=== PATIENT | male | born 1985 | race Caucasian/White ===

== ENCOUNTER 2020-10-08 00:23 | Emergency (ER) | payer OTHER, SELFPAY ==
[2020-10-08 00:32] VITALS: BP 156/85; PULSE 87; RESP 18; TEMP 36.1; O2SAT 97; BMI 32.5
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
[2020-10-08] MEDS: Acetaminophen 325 MG TABLET 650 MG PO (00:57)
[2020-10-08] MEDS: Cyclobenzaprine HCl 5 MG TABLET PO (00:58)
== END 2020-10-08 01:27 | disposition home or self-care (01) ==
PROVIDERS: Emergency Provider Student in an Organized Health Care Education/Training Program; PCP Internal Medicine
DX: S13.4XXA Sprain of ligaments of cervical spine, initial encounter (principal); V43.52XA Car driver injured in collision with other type car in traffic accident, initial encounter; Y93.89 Activity, other specified; Y92.414 Local residential or business street as the place of occurrence of the external cause; Y99.0 Civilian activity done for income or pay
CPT/HCPCS: 99283; 99284

== ENCOUNTER 2020-10-09 20:20 | Emergency (ER) | payer OTHER, SELFPAY ==
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
[2020-10-09 21:45] VITALS: BP 154/91; PULSE 94; RESP 18; TEMP 37.7; O2SAT 98; BMI 33.9
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
[2020-10-09] MEDS: Cyclobenzaprine HCl 10 MG TABLET PO (23:34)
== END 2020-10-10 00:52 | disposition home or self-care (01) ==
PROVIDERS: Emergency Provider Emergency Medicine; PCP Internal Medicine
DX: Z04.2 Encounter for examination and observation following work accident (principal); R51.9 Headache, unspecified
CPT/HCPCS: 70450; 99283; 99284

== ENCOUNTER 2020-10-12 16:25 | Outpatient (REF) | payer OTHER, SELFPAY ==
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
== END 2020-10-12 16:26 | disposition home or self-care (01) ==
LOC: HO.HMGCX 16:25
PROVIDERS: PCP Internal Medicine; Visit Provider Nurse Practitioner Family
DX: S49.92XA Unspecified injury of left shoulder and upper arm, initial encounter (principal); V87.7XXA Person injured in collision between other specified motor vehicles (traffic), initial encounter; Y92.9 Unspecified place or not applicable; Y99.0 Civilian activity done for income or pay
CPT/HCPCS: 73030

== ENCOUNTER 2020-10-16 04:53 | Emergency (ER) | payer OTHER, SELFPAY ==
[2020-10-16 05:14] VITALS: BP 122/65; PULSE 96; RESP 14; TEMP 36.9; O2SAT 100; BMI 33.9
== END 2020-10-16 05:55 | disposition left against medical advice (07) ==
PROVIDERS: Emergency Provider Emergency Medicine; PCP Internal Medicine
DX: T78.40XA Allergy, unspecified, initial encounter (principal); X58.XXXA Exposure to other specified factors, initial encounter
CPT/HCPCS: 99281; 99282

== ENCOUNTER → 2020-10-16 07:40 | Outpatient (BNVA) | payer OTHER, SELFPAY | PROVIDERS: PCP Internal Medicine; Visit Provider Internal Medicine | DX: S13.4XXA Sprain of ligaments of cervical spine, initial encounter (principal); V89.2XXA Person injured in unspecified motor-vehicle accident, traffic, initial encounter; M24.812 Other specific joint derangements of left shoulder, not elsewhere classified | CPT/HCPCS: 99203 ==

== ENCOUNTER → 2020-10-19 13:27 | Outpatient (BNVA) | payer OTHER, SELFPAY | PROVIDERS: PCP Internal Medicine; Visit Provider Internal Medicine | DX: S06.0X0A Concussion without loss of consciousness, initial encounter (principal); S16.1XXA Strain of muscle, fascia and tendon at neck level, initial encounter; S46.912A Strain of unspecified muscle, fascia and tendon at shoulder and upper arm level, left arm, initial encounter; V89.2XXA Person injured in unspecified motor-vehicle accident, traffic, initial encounter | CPT/HCPCS: 99214 ==

== ENCOUNTER → 2020-10-26 13:04 | Outpatient (BNVA) | payer OTHER, SELFPAY | PROVIDERS: PCP Internal Medicine; Visit Provider Internal Medicine | DX: S06.9X0A Unspecified intracranial injury without loss of consciousness, initial encounter (principal); S46.911A Strain of unspecified muscle, fascia and tendon at shoulder and upper arm level, right arm, initial encounter; X58.XXXA Exposure to other specified factors, initial encounter | CPT/HCPCS: 99213 ==

== ENCOUNTER → 2020-11-05 13:14 | Outpatient (BNVA) | payer OTHER, SELFPAY | PROVIDERS: PCP Internal Medicine; Visit Provider Internal Medicine | DX: F07.81 Postconcussional syndrome (principal); M25.512 Pain in left shoulder | CPT/HCPCS: 99213 ==

== ENCOUNTER → 2020-11-13 12:53 | Outpatient (BNVA) | payer OTHER, SELFPAY | PROVIDERS: PCP Internal Medicine; Visit Provider Internal Medicine | DX: S06.9X0D Unspecified intracranial injury without loss of consciousness, subsequent encounter (principal); V89.2XXD Person injured in unspecified motor-vehicle accident, traffic, subsequent encounter; M25.512 Pain in left shoulder | CPT/HCPCS: 99213 ==

== ENCOUNTER → 2020-11-19 13:07 | Outpatient (BNVA) | payer OTHER, SELFPAY | PROVIDERS: PCP Internal Medicine; Visit Provider Internal Medicine | DX: S16.1XXD Strain of muscle, fascia and tendon at neck level, subsequent encounter (principal); S06.9X0D Unspecified intracranial injury without loss of consciousness, subsequent encounter; V89.2XXD Person injured in unspecified motor-vehicle accident, traffic, subsequent encounter | CPT/HCPCS: 99213 ==

== ENCOUNTER → 2020-12-10 13:11 | Outpatient (BNVA) | payer OTHER, SELFPAY | PROVIDERS: PCP Internal Medicine; Visit Provider Internal Medicine | DX: R25.3 Fasciculation (principal) | CPT/HCPCS: 99213 ==

== ENCOUNTER → 2020-12-14 11:13 | Outpatient (BNVA) | payer OTHER, SELFPAY | PROVIDERS: PCP Internal Medicine; Visit Provider Internal Medicine | DX: S16.1XXD Strain of muscle, fascia and tendon at neck level, subsequent encounter (principal); X58.XXXD Exposure to other specified factors, subsequent encounter | CPT/HCPCS: 99213 ==

== ENCOUNTER 2020-12-16 17:00 | Outpatient (RCR) | payer OTHER, SELFPAY ==
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
== END 2021-02-19 15:57 | disposition home or self-care (01) ==
LOC: HO.PT 17:00
PROVIDERS: PCP Internal Medicine; Visit Provider Internal Medicine
DX: S16.1XXA Strain of muscle, fascia and tendon at neck level, initial encounter (principal); S46.812A Strain of other muscles, fascia and tendons at shoulder and upper arm level, left arm, initial encounter
CPT/HCPCS: 97110; 97140; 97161; 97530

== ENCOUNTER 2020-12-22 09:11 | Outpatient (REF) | payer OTHER, SELFPAY ==
[2020-12-22 10:05] LABS: MANUAL DIFF FLAG NO
[2020-12-22 10:18] LABS: Basophils Percent Auto 0.5 % (0-2); Eosinophils Absolute Auto 0.1 X10*3/uL (0.0-0.4); Eosinophils Percent Auto 1.5 % (0-4); Hematocrit 43.7 % (42-52); Hemoglobin 15.1 g/dl (14.0-18.0); Imm Gran Abs Auto 0.02 X10*3/uL (0.00-0.03); Imm Gran Pct Auto 0.3 % (0.0-0.4); Lymphocytes Absolute Auto 2.7 X10*3/uL (1.2-4.9); Lymphocytes Percent Auto 43.8 % (20-40); Mean Corpuscular HGB Conc 34.6 g/dl (31.0-36.0); Mean Corpuscular Hemoglobin 30.9 pg (27.0-33.0); Mean Corpuscular Volume 89.5 fL (80-98); Mean Platelet Volume 9.8 fL (9.4-12.4); Monocytes Absolute Auto 0.5 X10*3/uL (0.1-1.2); Monocytes Percent Auto 7.4 % (2-11); Neutrophils Absolute Auto 2.9 X10*3/uL (2.0-8.3); Neutrophils Percent Auto 46.5 % (45-73); Platelet Count 206 X10*3/uL (160-400); Red Blood Count 4.88 X10*6/uL (4.60-5.80); Red Cell Distribution Width 12.3 % (11.0-16.0); White Blood Count 6.1 X10*3/uL (4.8-10.8)
[2020-12-22 10:26] LABS: Estimated Average Glucose 103 mg/dL; Hemoglobin A1c % 5.2 %
[2020-12-22 10:54] LABS: Alanine Aminotransferase 47 U/L (0-40); Albumin Level 4.7 g/dL (3.5-5.0); Alkaline Phosphatase 93 U/L (39-117); Anion Gap 11 (12-20); Aspartate Amino Transferase 24 U/L (5-37); Blood Urea Nitrogen 15 mg/dL (9-16); Calcium 9.7 mg/dL (8.4-10.2); Carbon Dioxide 30 mmol/L (22-29); Chloride 102 mmol/L (96-108); Cholesterol 203 mg/dL; Estimated Glomerular Filt Rate > 60; Glucose Random 98 mg/dL (60-115); HDL Cholesterol 49 mg/dL; LDL Cholesterol Calculated 134 mg/dl; Potassium 4.3 mmol/L (3.3-5.1); Sodium 139 mmol/L (135-145); Total Protein 7.5 g/dL (6.5-8.0); Triglycerides 101 mg/dL
[2020-12-22 11:16] LABS: Free T4 (Free Thyroxine) 1.24 ng/dL (0.71-1.85); Thyroid Stimulating Hormone 0.98 uIU/mL (0.32-4.0)
[2020-12-22 11:36] LABS: Erythrocyte Sedimentation Rate 9 MM/HR (0-15)
[2020-12-22 13:06] LABS: Folate 16.6 ng/mL (> or = 4.0); Vitamin B12 864 pg/mL (200-900)
[2020-12-27 12:32] LABS: Testosterone, Total 414 ng/dL (250-1100)
== END 2020-12-22 09:12 | disposition home or self-care (01) ==
LOC: HO.LAB 09:11
PROVIDERS: PCP Internal Medicine; Visit Provider Internal Medicine
DX: I10 Essential (primary) hypertension (principal); N52.9 Male erectile dysfunction, unspecified; E78.00 Pure hypercholesterolemia, unspecified
CPT/HCPCS: 36415; 80053; 80061; 82607; 82746; 83036; 84403; 84439; 84443; 85025; 85652

== ENCOUNTER → 2021-01-05 13:34 | Outpatient (BNVA) | payer OTHER, SELFPAY | PROVIDERS: PCP Internal Medicine; Visit Provider Internal Medicine | DX: F07.81 Postconcussional syndrome (principal) | CPT/HCPCS: 99214 ==

== ENCOUNTER → 2021-01-28 14:36 | Outpatient (BNVA) | payer OTHER, SELFPAY | PROVIDERS: PCP Internal Medicine; Visit Provider Internal Medicine | DX: S06.9X0D Unspecified intracranial injury without loss of consciousness, subsequent encounter (principal); V89.2XXD Person injured in unspecified motor-vehicle accident, traffic, subsequent encounter; M54.2 Cervicalgia | CPT/HCPCS: 99214 ==

== ENCOUNTER 2021-03-02 07:22 | Outpatient (REF) | payer OTHER, SELFPAY ==
--- NOTE | ~2021-03-02 | MR_ITS ---
EXAMINATION: MR CERVICAL SPINE WITHOUT CONTRAST CLINICAL INFORMATION: 35-year-old with pain and muscle twitching left neck to shoulder. COMPARISON: None TECHNIQUE: MRI of the cervical spine was obtained using routine sequences without contrast. FINDINGS: Alignment: There is mild lordotic reversal centered at C4-C5. No spondylolisthesis. Craniocervical Junction/C1-C2 Articulations: Intact and aligned. Visualized Intracranial Structures: Within normal limits. Vertebral Bodies: Normal height. Disc Spaces and Endplates: The intervertebral disc space heights are well maintained. There is no significant spondylosis. Endplates appear intact. Bone Marrow: No significant marrow-replacing process or bone marrow edema. C2-C3: No disc herniation. Minor facet arthrosis on the left. No significant canal or neural foraminal stenosis. C3-C4: Tiny central disc protrusion. Uncovertebral disc osteophyte complex on the right with associated mglouzxo-sc-kvfjtq right-sided neural foraminal stenosis. Mild left-sided facet arthrosis noted. No canal stenosis. C4-C5: Broad-based central disc protrusion noted with mild flattening of the central dural sac without cord impingement or significant spinal canal stenosis. Mild uncovertebral spurring noted on the left with minor bilateral facet arthrosis and mild left-sided neural foraminal stenosis. C5-C6: Small central disc protrusion with slight indentation of the ventral thecal sac without cord impingement. Ktcfmfqr-yq-lhgjyd left-sided facet hypertrophic degenerative change is noted, and there is uncovertebral spurring on the right noted with iuco-jv-kexzmwqd right-sided neural foraminal stenosis without spinal canal stenosis. C6-C7: Small central disc protrusion with minimal indentation of the ventral thecal sac. No canal stenosis. No significant DJD or neural foraminal stenosis. C7-T1: No disc herniation or canal stenosis. Small right-sided disc-osteophyte complex encroaching on the proximal right neural foramen. Cokc-ax-yjlzgkiz bilateral facet arthrosis noted with caqt-qu-mtlmcbld right-sided neural foraminal stenosis. T1-T2: Posterolateral disc-osteophyte complex noted on the right with minimal encroachment on the right neural foramen without neural impingement. The cervical and visualized upper thoracic spinal cord is normal in morphology, caliber and signal intensity. MR/MR cervical spine wo con IMPRESSION: 1. Mild lordotic reversal centered at C4-C5. 2. Multilevel central disc protrusions, most apparent at C4-C5 without spinal cord impingement and no significant spinal canal stenosis. 3. Multilevel posterolateral disc-osteophyte complexes and uncovertebral arthrosis with multilevel bilateral facet arthropathy, as described above. Hstkjasr-tb-syryuf right-sided neural foraminal stenosis at C3-C4, mild left-sided neural foraminal stenosis at C4-C5, sdyx-xz-rrbaolyy right-sided neural foraminal stenosis at C5-C6, isug-kz-pqcjjwoj right-sided neural foraminal stenosis at C7-T1.
== END 2021-03-02 07:23 | disposition home or self-care (01) ==
LOC: HO.MRI 07:22
PROVIDERS: PCP Internal Medicine; Visit Provider Internal Medicine
DX: M54.2 Cervicalgia (principal)
CPT/HCPCS: 72141

== ENCOUNTER → 2021-03-19 08:03 | Outpatient (BNVA) | payer OTHER, SELFPAY | PROVIDERS: PCP Internal Medicine; Visit Provider Internal Medicine | DX: S16.1XXD Strain of muscle, fascia and tendon at neck level, subsequent encounter (principal); V89.2XXD Person injured in unspecified motor-vehicle accident, traffic, subsequent encounter; M50.33 Other cervical disc degeneration, cervicothoracic region | CPT/HCPCS: 99213 ==

== ENCOUNTER 2021-04-08 | Outpatient (REF) | payer OTHER, SELFPAY ==
[2021-04-09 13:52] LABS: Influenza A PCR NEGATIVE (Negative); Influenza B PCR NEGATIVE (Negative); Resp Syncy Virus RNA Qual PCR NEGATIVE (Negative); SARS COV2 PCR INHOUSE NEGATIVE (Negative)
== END 2021-04-08 00:01 | disposition home or self-care (01) ==
LOC: HO.LNP
PROVIDERS: Visit Provider Physician Assistant Medical
DX: Z20.822 Contact with and (suspected) exposure to COVID-19 (principal); J06.9 Acute upper respiratory infection, unspecified
CPT/HCPCS: 0241U

== ENCOUNTER → 2021-04-12 14:26 | Outpatient (BNVA) | payer OTHER, SELFPAY | PROVIDERS: PCP Internal Medicine; Referring Provider Internal Medicine; Visit Provider Internal Medicine Cardiovascular Disease ==

== ENCOUNTER 2021-07-20 14:20 | Outpatient (REF) | payer BC, SELFPAY ==
[2021-07-20 15:12] LABS: Anion Gap 13 (12-20); Blood Urea Nitrogen 11 mg/dL (9-16); Calcium 10.3 mg/dL (8.4-10.2); Carbon Dioxide 29 mmol/L (22-29); Chloride 104 mmol/L (96-108); Cholesterol 224 mg/dL; Estimated Glomerular Filt Rate > 60; Glucose Random 110 mg/dL (60-115); HDL Cholesterol 48 mg/dL; LDL Cholesterol Calculated 141 mg/dl; Potassium 4.5 mmol/L (3.3-5.1); Sodium 141 mmol/L (135-145); Triglycerides 176 mg/dL
== END 2021-07-20 14:21 | disposition home or self-care (01) ==
LOC: HO.LAB 14:20
PROVIDERS: Absent Provider Nurse Practitioner Family; PCP Internal Medicine; Visit Provider Nurse Practitioner Family
DX: Z13.220 Encounter for screening for lipoid disorders (principal); Z82.49 Family history of ischemic heart disease and other diseases of the circulatory system
CPT/HCPCS: 36415; 80048; 80061

== ENCOUNTER 2021-08-02 14:29 | Outpatient (REF) | payer BC, SELFPAY ==
--- NOTE | ~2021-08-02 | CT_ITS ---
EXAMINATION: CT ANGIOGRAM CHEST CLINICAL INFORMATION: Family history of ischemic heart disease. COMPARISON: None TECHNIQUE: Multiple axial images were obtained through the chest after the administration of 70 mL of Omnipaque 350 intravenous contrast. Extensive vascular post-processing including two-dimensional and three-dimensional reformatted images were created and reviewed on an independent workstation. This CT examination was performed using dose optimization techniques as appropriate, variously including the following: *Automated exposure control *Adjustment of mA and/or kV according to patient size (this includes techniques or standardized protocols for targeted exams where dose is matched to indication/reason for exam; i.e. extremities or head) *Use of iterative reconstruction technique DLP: 186 mGy-cm FINDINGS: Limited evaluation of the aortic root secondary to cardiac motion. The coronary arteries appear to arise from their expected cusps. The ascending thoracic aorta is normal in caliber. No evidence of dissection or other acute aortic syndrome. There is a three-vessel aortic arch. The origins of the arch vessels and their visualized segments are widely patent. The descending thoracic aorta is normal in caliber. No evidence of dissection or other acute aortic syndrome. The partially visualized abdominal aorta is normal in caliber. The celiac trunk is patent and normal in caliber. The pulmonary arteries are nondilated. While not a dedicated evaluation of the pulmonary arteries, no large central emboli are seen. There is an unremarkable appearance of the pulmonary veins. The central venous structures are unremarkable. The lungs are well expanded. There is no pulmonary parenchymal mass, consolidation, discrete suspicious nodule, or ground-glass attenuation. The central and peripheral airways are patent and normal. There is no pleural effusion or pleural nodularity. The heart is not enlarged. There is no pericardial effusion or pericardial thickening. There are no pathologically enlarged mediastinal or hilar lymph nodes. The visualized thyroid is unremarkable. The axillae are unremarkable. There is no axillary lymphadenopathy. The incompletely visualized upper abdomen is unremarkable for any significant abnormality. The structures of the chest wall, including the bones, are unremarkable. CT/CT angio chest aorta IMPRESSION: Patent thoracic vasculature. No evidence of aortic aneurysm or acute aortic syndrome. No abnormality of the chest identified. Fleischner guidelines were followed.
[2021-08-02] MEDS: iohexoL 350 MG/ML 75 ML INFUS..BTL 70 ML IV (15:16)
== END 2021-08-02 14:30 | disposition home or self-care (01) ==
LOC: HO.CT 14:29
PROVIDERS: Visit Provider Internal Medicine Cardiovascular Disease
DX: Z82.49 Family history of ischemic heart disease and other diseases of the circulatory system (principal)
CPT/HCPCS: 71275; Q9967

== ENCOUNTER 2021-09-09 07:44 | Outpatient (REF) | payer SELFPAY | END 2021-09-09 07:45 | disposition home or self-care (01) | LOC: HO.HOSX 07:44 | PROVIDERS: Visit Provider Physician Assistant | DX: Z13.89 Encounter for screening for other disorder (principal) ==

== ENCOUNTER 2021-11-03 16:20 | Outpatient (REF) | payer OTHER, SELFPAY ==
[2021-11-03 16:34] LABS: MANUAL DIFF FLAG NO
[2021-11-03 16:45] LABS: Basophils Percent Auto 0.1 % (0-2); Eosinophils Absolute Auto 0.2 X10*3/uL (0.0-0.4); Eosinophils Percent Auto 2.5 % (0-4); Hematocrit 43.7 % (42.0-52.0); Hemoglobin 15.3 g/dl (14.0-18.0); Imm Gran Abs Auto 0.03 X10*3/uL (0.00-0.03); Imm Gran Pct Auto 0.4 % (0.0-0.4); Lymphocytes Absolute Auto 3.2 X10*3/uL (1.2-4.9); Lymphocytes Percent Auto 47.4 % (20-40); Mean Corpuscular Hemoglobin 30.5 pg (27.0-33.0); Mean Corpuscular Volume 87.2 fL (80.0-98.0); Mean Platelet Volume 9.9 fL (9.4-12.4); Monocytes Absolute Auto 0.6 X10*3/uL (0.1-1.2); Monocytes Percent Auto 8.3 % (2-11); Neutrophils Absolute Auto 2.8 x10*3/uL (2.0-8.3); Neutrophils Percent Auto 41.3 % (45-73); Platelet Count 223 X10*3/uL (160-400); Red Blood Count 5.01 X10*6/uL (4.60-5.80); Red Cell Distribution Width 12.4 % (11.0-16.0); White Blood Count 6.8 X10*3/uL (4.8-10.8)
[2021-11-03 18:19] LABS: Alanine Aminotransferase 78 U/L (0-40); Albumin Level 4.5 g/dL (3.5-5.0); Alkaline Phosphatase 116 U/L (39-117); Anion Gap 10 (12-20); Aspartate Amino Transferase 40 U/L (5-37); Bilirubin Direct 0.3 mg/dL (0.0-0.5); Bilirubin Total 1.1 mg/dL (0.0-1.0); Blood Urea Nitrogen 13 mg/dL (9-16); Calcium 9.5 mg/dL (8.4-10.2); Carbon Dioxide 30 mmol/L (22-29); Chloride 100 mmol/L (96-108); Cholesterol 258 mg/dL; Estimated Glomerular Filt Rate > 60; Glucose Random 101 mg/dL (60-115); HDL Cholesterol 42 mg/dL; LDL Cholesterol Calculated 157 mg/dl; Potassium 4.3 mmol/L (3.3-5.1); Sodium 136 mmol/L (135-145); Total Protein 7.5 g/dL (6.5-8.0); Triglycerides 296 mg/dL
[2021-11-03 18:39] LABS: Thyroid Stimulating Hormone 1.08 uIU/mL (0.32-4.0)
[2021-11-08 11:17] LABS: Testosterone, Total 430 ng/dL (250-1100)
== END 2021-11-03 16:21 | disposition home or self-care (01) ==
LOC: HO.LAB 16:20
PROVIDERS: Visit Provider Internal Medicine
DX: I10 Essential (primary) hypertension (principal); E78.00 Pure hypercholesterolemia, unspecified; R79.89 Other specified abnormal findings of blood chemistry
CPT/HCPCS: 36415; 80053; 80061; 82248; 84403; 84439; 84443; 85025

== ENCOUNTER 2022-07-09 10:41 | Outpatient (REF) | payer OTHER, SELFPAY ==
[2022-07-09 10:57] LABS: MANUAL DIFF FLAG NO
[2022-07-09 11:12] LABS: Basophils Percent Auto 0.3 % (0-2); Eosinophils Absolute Auto 0.1 X10*3/uL (0.0-0.4); Eosinophils Percent Auto 1.6 % (0-4); Hematocrit 44.7 % (42.0-52.0); Hemoglobin 15.7 g/dl (14.0-18.0); Imm Gran Abs Auto 0.02 X10*3/uL (0.00-0.03); Imm Gran Pct Auto 0.3 % (0.0-0.4); Lymphocytes Absolute Auto 3.5 X10*3/uL (1.2-4.9); Lymphocytes Percent Auto 49.6 % (20-40); Mean Corpuscular HGB Conc 35.1 g/dl (31.0-36.0); Mean Corpuscular Hemoglobin 30.7 pg (27.0-33.0); Mean Corpuscular Volume 87.3 fL (80.0-98.0); Mean Platelet Volume 10.1 fL (9.4-12.4); Monocytes Absolute Auto 0.6 X10*3/uL (0.1-1.2); Monocytes Percent Auto 8.6 % (2-11); Neutrophils Absolute Auto 2.8 x10*3/uL (2.0-8.3); Neutrophils Percent Auto 39.6 % (45-73); Platelet Count 220 X10*3/uL (160-400); Red Blood Count 5.12 X10*6/uL (4.60-5.80); Red Cell Distribution Width 12.5 % (11.0-16.0)
[2022-07-09 11:45] LABS: Alanine Aminotransferase 83 U/L (0-40); Albumin Level 4.4 g/dL (3.5-5.0); Alkaline Phosphatase 128 U/L (39-117); Anion Gap 11 (12-20); Aspartate Amino Transferase 38 U/L (5-37); Bilirubin Total 1.3 mg/dL (0.0-1.0); Blood Urea Nitrogen 13 mg/dL (9-16); Calcium 9.4 mg/dL (8.4-10.2); Carbon Dioxide 28 mmol/L (22-29); Chloride 104 mmol/L (96-108); Cholesterol 248 mg/dL; Estimated Glomerular Filt Rate > 60; Glucose Fasting 135 mg/dL (60-99); HDL Cholesterol 39 mg/dL; LDL Cholesterol Calculated 172 mg/dl; Potassium 4.4 mmol/L (3.3-5.1); Sodium 139 mmol/L (135-145); Total Protein 7.3 g/dL (6.5-8.0); Triglycerides 185 mg/dL
[2022-07-09 12:02] LABS: TSH reflex Free T4 1.03 uIU/mL (0.32-4.0); Vitamin D 25-OH Total 15.3 ng/mL (>30)
[2022-07-09 13:52] LABS: CT PCR NOT DETECTED (Not Detect.); NG PCR NOT DETECTED (Not Detect.)
[2022-07-11 07:40] LABS: Syphilis Screen Nonreactive (Nonreactive)
[2022-07-11 08:47] LABS: HBS Num1 6.26 mIU/mL (0-7.99); HBc Num1 0.15 S/CO (0.00-0.79); HBsAGNum1 0.38 S/CO (0.00-0.99); Hepatitis B Core Antibody Nonreactive (Nonreactive); Hepatitis B Surface Antigen Negative (Negative); ~HepC Num1 0.14 S/CO (0.00-0.79); ~Hepatitis B Surface Antibody NONREACTIVE (Nonreactive); ~Hepatitis C Antibody Nonreactive (Nonreactive)
[2022-07-15 14:08] LABS: Testosterone, Total 451 ng/dL (250-1100)
== END 2022-07-09 10:42 | disposition home or self-care (01) ==
LOC: HO.LAB 10:41
PROVIDERS: PCP Internal Medicine; Visit Provider Nurse Practitioner Family
DX: Z13.29 Encounter for screening for other suspected endocrine disorder (principal); G47.00 Insomnia, unspecified; R53.83 Other fatigue; E78.00 Pure hypercholesterolemia, unspecified; I10 Essential (primary) hypertension; Z20.2 Contact with and (suspected) exposure to infections with a predominantly sexual mode of transmission; E55.9 Vitamin D deficiency, unspecified
CPT/HCPCS: 0353U; 80053; 80061; 82306; 84403; 84443; 85025; 86704; 86706; 86780; 86803; 87340

== ENCOUNTER 2022-08-01 19:22 | Emergency (ER) | payer OTHER, SELFPAY ==
[2022-08-01 19:52] VITALS: BP 145/87; PULSE 91; RESP 18; TEMP 36.7; O2SAT 98; BMI 38.0
--- NOTE | 2022-08-01 19:55 | ECG_ITS ---
Test Reason : HTN Blood Pressure : / mmHG Vent. Rate : 089 BPM Atrial Rate : 089 BPM P-R Int : 150 ms QRS Dur : 098 ms QT Int : 348 ms P-R-T Axes : 011 045 023 degrees QTc Int : 423 ms Normal sinus rhythm Normal ECG When compared with ECG of 16-DEC-2017 04:26, Vent. rate has decreased BY 46 BPM Referred By: Roger Olivera Electronically Signed By:DULCE MARIA TAPIA
--- NOTE | 2022-08-01 19:58 | ED.GENADULT ---
HPI - General Adult General Chief complaint: General Medical <MAXIM Weinstein - Last Filed: 08/14/22 11:31> Stated complaint: elevated bp's <MAXIM Weinstein - Last Filed: 08/14/22 11:31> Time Seen by Provider: 08/01/22 22:59 <MAXIM Weinstein - Last Filed: 08/14/22 11:31> Source: patient <Rafael Arechiga MD - Last Filed: 08/01/22 23:27> Mode of arrival: ambulatory <Rafael Arechiga MD - Last Filed: 08/01/22 23:27> Limitations: no limitations <Rafael Arechiga MD - Last Filed: 08/01/22 23:27> History of Present Illness HPI narrative: Patient is 37 years old with history of diet-controlled diabetes, hypertension used to be on metformin which was stopped as he lost weight and blood sugar control on lisinopril 10 mg daily for last 5 noticed for last 1 month blood pressure on the higher side facial for last 1 week went to 180/100 patient has increased the dose of lisinopril to 20 mg daily last 1 week today he took 3 tablets and on arrival blood pressure was 125/83 <Rafael Arechiga MD - Last Filed: 08/01/22 23:27> Related Data Home medications: Home Medications Medication Instructions Recorded Confirmed albuterol sulfate 90 mcg/actuation 2 puff inhalation Q6H PRN 02/18/21 06/23/22 aerosol inhaler (ProAir HFA) Previous Rx's Medication Instructions Recorded lisinopril 10 mg tablet 10 mg PO DAILY 90 days #90 tabs 10/29/21 montelukast 10 mg tablet 10 mg PO BEDTIME #30 tabs 10/29/21 (Singulair) cholecalciferol (vitamin D3) 50 50 mcg PO DAILY #90 tabs 07/15/22 mcg (2,000 unit) tablet hydrochlorothiazide 12.5 mg tablet 12.5 mg PO DAILY #90 tabs 08/01/22 metformin 500 mg tablet 500 mg PO BID #180 tabs 08/01/22 <MAXIM Weinstein - Last Filed: 08/14/22 11:31> Allergies/adverse reactions: Allergies Allergy/AdvReac Type Severity Reaction Status Date / Time trazodone AdvReac Intermediate congested Verified 08/01/22 19:57 zolpidem [From Ambien] AdvReac Intermediate not Verified 08/01/22 19:57 effective <MAXIM Weinstein - Last Filed: 08/14/22 11:31> Review of Systems Review of Systems: Yes all other systems are reviewed and are negative <Rafael Arechiga MD - Last Filed: 08/01/22 23:27> [facility] Past Medical History Medical History: Medical History Anxiety Diabetes Polysubstance abuse Screening for hyperlipidemia <MAXIM Weinstein - Last Filed: 08/14/22 11:31> Surgical History: Surgical History S/P nasal surgery <MAXIM Weinstein - Last Filed: 08/14/22 11:31> Family History Family History: Family History Mother No problems noted. Father Heart attack Heart disease CAD (coronary artery disease) Paternal Grandmother Stroke Unknown Ascending aortic aneurysm <MAXIM Weinstein - Last Filed: 08/14/22 11:31> Social History Social History: Social History Housing: Apartment Alcohol intake: never Patient Tobacco Use Status: Never used Tobacco Tobacco use type: Cigarette Years Smoked: 2004 e-Cigarette/Vaping Use: Never Used Second Hand Smoke Exposure: No service: No Current occupational status: employed Current occupational exposures/hazards: No Cognitive needs: No Hearing needs: No Vision needs: Yes <MAXIM Weinstein - Last Filed: 08/14/22 11:31> Physical Exam ED Vital Signs: Vital Signs - 24 hr 08/01/22 19:52 Temperature 98.1 F Pulse Rate 91 Respiratory Rate 18 Blood Pressure 145/87 H Pulse Oximetry 98 Oxygen Delivery Method Room Air BMI result Body Mass Index 38.0 <MAXIM Weinstein - Last Filed: 08/14/22 11:31> Vital Signs - 24 hr 08/01/22 19:52 Temperature 98.1 F Pulse Rate 91 Respiratory Rate 18 Blood Pressure 145/87 H Pulse Oximetry 98 Oxygen Delivery Method Room Air BMI result Body Mass Index 38.0 <Rafael Arechiga MD - Last Filed: 08/01/22 23:27> Appearance: Alert. Oriented X3. No acute distress. Eyes: PERRLA, No Nystagmus ENT: Pharynx normal. Oral Mucosa moist Neck: Normal inspection. Neck supple. CVS: Normal heart rate and rhythm. Pulses normal. Respiratory: No respiratory distress. Equal air entry bilateral, no wheezing/rales/rhonchi Abdomen: Soft and nontender. Bowel sounds are present, no mass palpable, no CVA tenderness Skin: Skin warm and dry. Normal skin color. Normal skin turgor. Extremities: No lower extremity edema. No calf tenderness Neuro: Oriented X 3. No motor deficit. No sensory deficit.No cerebellar signs , cranial nerves II-XII intact <Rafael Arechiga MD - Last Filed: 08/01/22 23:27> Course Course Course Narrative: RME: Patient she will male presents to ED for headache and elevated blood pressure. Patient states at home his blood pressure readings were systolic 180 and diastolic over 100. Patient states compliant with his lisinopril. Presently in the ED patient's blood pressure normal. Negative for any neuro deficits on exam. Will do EKG and basic labs. <MAXIM Weinstein - Last Filed: 08/14/22 11:31> Medications Administered Discontinued Medications Generic Name Dose Route Start Last Admin Trade Name Freq PRN Reason Stop Dose Admin Metformin HCl 500 mg 08/01/22 23:18 08/02/22 00:28 Metformin Hcl 500 Mg Tablet PO 08/01/22 23:19 Not Given ONCE ONE <MAIXM Weinstein - Last Filed: 08/14/22 11:31> Medications Administered Discontinued Medications Generic Name Dose Route Start Last Admin Trade Name Freq PRN Reason Stop Dose Admin Metformin HCl 500 mg 08/01/22 23:18 08/02/22 00:28 Metformin Hcl 500 Mg Tablet PO 08/01/22 23:19 Not Given ONCE ONE <Rafael Arechiga MD - Last Filed: 08/01/22 23:27> Medical Decision Making Medical Decision Making MDM Narrative: Patient with elevated blood pressure will increase the dose of lisinopril 20 mg at hydrochlorothiazide 12. 5 mg daily. Will also start on metformin, check HbA1c, follow-up with PCP <Rafael Arechiga MD - Last Filed: 08/01/22 23:27> Lab Data MDM Lab Attestation statement: I reviewed the patient's lab results. <Rafael Arechiga MD - Last Filed: 08/01/22 23:27> Result Diagrams: 08/01/22 20:17 08/01/22 20:17 <MAXIM Weinstein - Last Filed: 08/14/22 11:31> Labs: Lab Results 08/01/22 08/01/22 08/01/22 Range/Units 20:17 20:17 20:17 WBC 6.4 (4.8-10.8) X10*3/uL RBC 4.89 (4.60-5.80) X10*6/uL Hgb 14.8 (14.0-18.0) g/dl Hct 43.0 (42.0-52.0) % MCV 87.9 (80.0-98.0) fL MCH 30.3 (27.0-33.0) pg MCHC 34.4 (31.0-36.0) g/dl RDW 12.4 (11.0-16.0) % Plt Count 192 (160-400) X10*3/uL MPV 10.1 (9.4-12.4) fL Immature Gran % (Auto) 0.3 (0.0-0.4) % Neut % (Auto) 49.3 (45-73) % Lymph % (Auto) 38.2 (20-40) % Austin % (Auto) 9.9 (2-11) % Eos % (Auto) 2.0 (0-4) % Baso % (Auto) 0.3 (0-2) % Lymph # (Auto) 2.4 (1.2-4.9) X10*3/uL Austin # (Auto) 0.6 (0.1-1.2) X10*3/uL Eos # (Auto) 0.1 (0.0-0.4) X10*3/uL Baso # (Auto) 0.0 (0.0-0.2) X10*3/uL Abs Immat Gran (auto) 0.02 (0.00-0.03) X10*3/uL Absolute Neuts (auto) 3.2 (2.0-8.3) x10*3/uL Absolute Nucleated RBC 0.000 (0.0-0.012) X10*3/uL Nucleated RBC % (auto) 0.0 (0.0-0.2) /100WBC PT 11.2 (10.0-13.1) SEC INR 1.0 (0.9-1.1) APTT 32.0 (26.0-36.4) SEC Sodium 136 (135-145) mmol/L Potassium 4.1 (3.3-5.1) mmol/L Chloride 103 (96-108) mmol/L Carbon Dioxide 26 (22-29) mmol/L Anion Gap 11 L (12-20) BUN 14 (9-16) mg/dL Creatinine 1.13 (0.5-1.4) mg/dL Estim Creat Clear Calc 124.4 Estimated GFR > 60 Random Glucose 205 H (60-115) mg/dL Estimat Average Glucose mg/dL Hemoglobin A1c % % Calcium 9.5 (8.4-10.2) mg/dL Total Bilirubin 0.6 (0.0-1.0) mg/dL AST 33 (5-37) U/L ALT 77 H (0-40) U/L Alkaline Phosphatase 127 H (39-117) U/L Troponin I High Sens (<3.5-35.0) ng/L Total Protein 7.3 (6.5-8.0) g/dL Albumin 4.6 (3.5-5.0) g/dL 08/01/22 08/01/22 Range/Units 20:17 20:17 WBC (4.8-10.8) X10*3/uL RBC (4.60-5.80) X10*6/uL Hgb (14.0-18.0) g/dl Hct (42.0-52.0) % MCV (80.0-98.0) fL MCH (27.0-33.0) pg MCHC (31.0-36.0) g/dl RDW (11.0-16.0) % Plt Count (160-400) X10*3/uL MPV (9.4-12.4) fL Immature Gran % (Auto) (0.0-0.4) % Neut % (Auto) (45-73) % Lymph % (Auto) (20-40) % Austin % (Auto) (2-11) % Eos % (Auto) (0-4) % Baso % (Auto) (0-2) % Lymph # (Auto) (1.2-4.9) X10*3/uL Austin # (Auto) (0.1-1.2) X10*3/uL Eos # (Auto) (0.0-0.4) X10*3/uL Baso # (Auto) (0.0-0.2) X10*3/uL Abs Immat Gran (auto) (0.00-0.03) X10*3/uL Absolute Neuts (auto) (2.0-8.3) x10*3/uL Absolute Nucleated RBC (0.0-0.012) X10*3/uL Nucleated RBC % (auto) (0.0-0.2) /100WBC PT (10.0-13.1) SEC INR (0.9-1.1) APTT (26.0-36.4) SEC Sodium (135-145) mmol/L Potassium (3.3-5.1) mmol/L Chloride (96-108) mmol/L Carbon Dioxide (22-29) mmol/L Anion Gap (12-20) BUN (9-16) mg/dL Creatinine (0.5-1.4) mg/dL Estim Creat Clear Calc Estimated GFR Random Glucose (60-115) mg/dL Estimat Average Glucose 151 mg/dL Hemoglobin A1c % 6.9 % Calcium (8.4-10.2) mg/dL Total Bilirubin (0.0-1.0) mg/dL AST (5-37) U/L ALT (0-40) U/L Alkaline Phosphatase (39-117) U/L Troponin I High Sens < 3.5 (<3.5-35.0) ng/L Total Protein (6.5-8.0) g/dL Albumin (3.5-5.0) g/dL <MAXIM Weinstein - Last Filed: 08/14/22 11:31> Lab Results 08/01/22 08/01/22 08/01/22 Range/Units 20:17 20:17 20:17 WBC 6.4 (4.8-10.8) X10*3/uL RBC 4.89 (4.60-5.80) X10*6/uL Hgb 14.8 (14.0-18.0) g/dl Hct 43.0 (42.0-52.0) % MCV 87.9 (80.0-98.0) fL MCH 30.3 (27.0-33.0) pg MCHC 34.4 (31.0-36.0) g/dl RDW 12.4 (11.0-16.0) % Plt Count 192 (160-400) X10*3/uL MPV 10.1 (9.4-12.4) fL Immature Gran % (Auto) 0.3 (0.0-0.4) % Neut % (Auto) 49.3 (45-73) % Lymph % (Auto) 38.2 (20-40) % Austin % (Auto) 9.9 (2-11) % Eos % (Auto) 2.0 (0-4) % Baso % (Auto) 0.3 (0-2) % Lymph # (Auto) 2.4 (1.2-4.9) X10*3/uL Austin # (Auto) 0.6 (0.1-1.2) X10*3/uL Eos # (Auto) 0.1 (0.0-0.4) X10*3/uL Baso # (Auto) 0.0 (0.0-0.2) X10*3/uL Abs Immat Gran (auto) 0.02 (0.00-0.03) X10*3/uL Absolute Neuts (auto) 3.2 (2.0-8.3) x10*3/uL Absolute Nucleated RBC 0.000 (0.0-0.012) X10*3/uL Nucleated RBC % (auto) 0.0 (0.0-0.2) /100WBC PT 11.2 (10.0-13.1) SEC INR 1.0 (0.9-1.1) APTT 32.0 (26.0-36.4) SEC Sodium 136 (135-145) mmol/L Potassium 4.1 (3.3-5.1) mmol/L Chloride 103 (96-108) mmol/L Carbon Dioxide 26 (22-29) mmol/L Anion Gap 11 L (12-20) BUN 14 (9-16) mg/dL Creatinine 1.13 (0.5-1.4) mg/dL Estim Creat Clear Calc 124.4 Estimated GFR > 60 Random Glucose 205 H (60-115) mg/dL Estimat Average Glucose mg/dL Hemoglobin A1c % % Calcium 9.5 (8.4-10.2) mg/dL Total Bilirubin 0.6 (0.0-1.0) mg/dL AST 33 (5-37) U/L ALT 77 H (0-40) U/L Alkaline Phosphatase 127 H (39-117) U/L Troponin I High Sens (<3.5-35.0) ng/L Total Protein 7.3 (6.5-8.0) g/dL Albumin 4.6 (3.5-5.0) g/dL 08/01/22 08/01/22 Range/Units 20:17 20:17 WBC (4.8-10.8) X10*3/uL RBC (4.60-5.80) X10*6/uL Hgb (14.0-18.0) g/dl Hct (42.0-52.0) % MCV (80.0-98.0) fL MCH (27.0-33.0) pg MCHC (31.0-36.0) g/dl RDW (11.0-16.0) % Plt Count (160-400) X10*3/uL MPV (9.4-12.4) fL Immature Gran % (Auto) (0.0-0.4) % Neut % (Auto) (45-73) % Lymph % (Auto) (20-40) % Austin % (Auto) (2-11) % Eos % (Auto) (0-4) % Baso % (Auto) (0-2) % Lymph # (Auto) (1.2-4.9) X10*3/uL Austin # (Auto) (0.1-1.2) X10*3/uL Eos # (Auto) (0.0-0.4) X10*3/uL Baso # (Auto) (0.0-0.2) X10*3/uL Abs Immat Gran (auto) (0.00-0.03) X10*3/uL Absolute Neuts (auto) (2.0-8.3) x10*3/uL Absolute Nucleated RBC (0.0-0.012) X10*3/uL Nucleated RBC % (auto) (0.0-0.2) /100WBC PT (10.0-13.1) SEC INR (0.9-1.1) APTT (26.0-36.4) SEC Sodium (135-145) mmol/L Potassium (3.3-5.1) mmol/L Chloride (96-108) mmol/L Carbon Dioxide (22-29) mmol/L Anion Gap (12-20) BUN (9-16) mg/dL Creatinine (0.5-1.4) mg/dL Estim Creat Clear Calc Estimated GFR Random Glucose (60-115) mg/dL Estimat Average Glucose 151 mg/dL Hemoglobin A1c % 6.9 % Calcium (8.4-10.2) mg/dL Total Bilirubin (0.0-1.0) mg/dL AST (5-37) U/L ALT (0-40) U/L Alkaline Phosphatase (39-117) U/L Troponin I High Sens < 3.5 (<3.5-35.0) ng/L Total Protein (6.5-8.0) g/dL Albumin (3.5-5.0) g/dL <Rafael Arechiga MD - Last Filed: 08/01/22 23:27> Discharge Plan Discharge Clinical Impression: Hypertension, Diabetes mellitus <MAXIM Weinstein - Last Filed: 08/14/22 11:31> Patient Disposition: Home, Self-Care <MAXIM Weinstein - Last Filed: 08/14/22 11:31> Instructions: Type 2 Diabetes in Adults: New Diagnosis (DC), Hypertension (ED) <MAXIM Weinstein - Last Filed: 08/14/22 11:31> Additional Instructions: Increase the dose of lisinopril to 20 mg daily Add hydrochlorothiazide 12.5 mg daily for better control Metformin 500 mg twice a day Diet restriction and weight loss as advised Check blood pressure daily should be less than 135/85 Follow-up with PCP <MAXIM Weinstein - Last Filed: 08/14/22 11:31> Prescriptions: New hydrochlorothiazide 12.5 mg tablet 12.5 mg PO DAILY Qty: 90 0RF metformin 500 mg tablet 500 mg PO BID Qty: 180 0RF No Action cholecalciferol (vitamin D3) 50 mcg (2,000 unit) tablet 50 mcg PO DAILY Qty: 90 0RF albuterol sulfate [ProAir HFA] 90 mcg/actuation HFA aerosol inhaler 2 puff inhalation Q6H PRN lisinopril 10 mg tablet 10 mg PO DAILY 90 Days Qty: 90 3RF montelukast [Singulair] 10 mg tablet 10 mg PO BEDTIME Qty: 30 3RF <MAXIM Weinstein - Last Filed: 08/14/22 11:31> Interventions: ED Discharge Assessment Last Done: 08/02/22 00:28 <MAXIM Weinstein - Last Filed: 08/14/22 11:31> Discharge Date/Time: 08/02/22 00:29 <MAXIM Weinstein - Last Filed: 08/14/22 11:31>
[2022-08-01 20:21] LABS: MANUAL DIFF FLAG NO
[2022-08-01 20:22] LABS: Basophils Percent Auto 0.3 % (0-2); Eosinophils Absolute Auto 0.1 X10*3/uL (0.0-0.4); Hemoglobin 14.8 g/dl (14.0-18.0); Imm Gran Abs Auto 0.02 X10*3/uL (0.00-0.03); Imm Gran Pct Auto 0.3 % (0.0-0.4); Lymphocytes Absolute Auto 2.4 X10*3/uL (1.2-4.9); Lymphocytes Percent Auto 38.2 % (20-40); Mean Corpuscular HGB Conc 34.4 g/dl (31.0-36.0); Mean Corpuscular Hemoglobin 30.3 pg (27.0-33.0); Mean Corpuscular Volume 87.9 fL (80.0-98.0); Mean Platelet Volume 10.1 fL (9.4-12.4); Monocytes Absolute Auto 0.6 X10*3/uL (0.1-1.2); Monocytes Percent Auto 9.9 % (2-11); Neutrophils Absolute Auto 3.2 x10*3/uL (2.0-8.3); Neutrophils Percent Auto 49.3 % (45-73); Platelet Count 192 X10*3/uL (160-400); Red Blood Count 4.89 X10*6/uL (4.60-5.80); Red Cell Distribution Width 12.4 % (11.0-16.0); White Blood Count 6.4 X10*3/uL (4.8-10.8)
[2022-08-01 20:28] LABS: Prothrombin Time 11.2 SEC (10.0-13.1)
[2022-08-01 20:48] LABS: Alanine Aminotransferase 77 U/L (0-40); Albumin Level 4.6 g/dL (3.5-5.0); Alkaline Phosphatase 127 U/L (39-117); Anion Gap 11 (12-20); Aspartate Amino Transferase 33 U/L (5-37); Bilirubin Total 0.6 mg/dL (0.0-1.0); Blood Urea Nitrogen 14 mg/dL (9-16); Calcium 9.5 mg/dL (8.4-10.2); Carbon Dioxide 26 mmol/L (22-29); Chloride 103 mmol/L (96-108); Creatinine Clr Calc Pharmacy 124.4; Estimated Glomerular Filt Rate > 60; Glucose Random 205 mg/dL (60-115); Potassium 4.1 mmol/L (3.3-5.1); Sodium 136 mmol/L (135-145); Total Protein 7.3 g/dL (6.5-8.0)
[2022-08-01 20:57] LABS: Troponin-I High Sensitivity < 3.5 ng/L (<3.5-35.0)
[2022-08-02 03:17] LABS: Estimated Average Glucose 151 mg/dL; Hemoglobin A1c % 6.9 %
== END 2022-08-02 00:29 | disposition home or self-care (01) ==
PROVIDERS: Physician Assistant; Emergency Provider Internal Medicine; PCP Internal Medicine
DX: E11.65 Type 2 diabetes mellitus with hyperglycemia (principal); I10 Essential (primary) hypertension; R94.31 Abnormal electrocardiogram [ECG] [EKG]; Z79.899 Other long term (current) drug therapy
CPT/HCPCS: 36415; 80053; 83036; 84484; 85025; 85610; 85730; 93005; 99283

== ENCOUNTER 2022-08-17 15:52 | Outpatient (REF) | payer OTHER, SELFPAY ==
--- NOTE | ~2022-08-17 | US_ITS ---
EXAMINATION: US ABDOMEN LIMITED CLINICAL INFORMATION: Other specified abnormal findings of blood chemistry. COMPARISON: CT abdomen and pelvis without contrast 08/19/2012. Renal ultrasound 08/19/2012. TECHNIQUE: Real-time imaging of the right upper quadrant abdominal viscera. Technically limited study secondary to patient's breathing/inability to hold breath. FINDINGS: PANCREAS: Largely obscured by overlapping bowel gas. LIVER: The caudate lobe is prominent. The liver is otherwise normal in size. The liver contour is normal. There is diffuse increased liver parenchymal echogenicity. No focal hepatic lesion. There is no intrahepatic biliary duct dilatation seen. GALLBLADDER: Normal. The gallbladder is physiologically distended without evidence of stones, sludge, polyps, wall thickening or pericholecystic fluid. COMMON BILE DUCT: Normal in caliber measuring 0.4 cm in diameter. RIGHT KIDNEY: Normal. No hydronephrosis. No renal calculi or focal parenchymal lesions. The kidney measures 13.1 cm in maximum dimension. FREE FLUID: None. US/US abdomen limited IMPRESSION: 1. There is generalized increase in hepatic echotexture, consistent with fatty infiltration or hepatocellular disease. Please correlate clinically. Prominence of the caudate lobe favors hepatocellular disease such as cirrhosis. No focal hepatic mass or intrahepatic biliary dilatation is seen. 2. Technically limited ultrasound examination of the pancreas.
== END 2022-08-17 15:53 | disposition home or self-care (01) ==
LOC: HO.US 15:52
PROVIDERS: PCP Internal Medicine; Visit Provider Nurse Practitioner Family
DX: R79.89 Other specified abnormal findings of blood chemistry (principal)
CPT/HCPCS: 76705

== ENCOUNTER 2022-11-15 16:01 | Outpatient (AMB) | payer OTHER, SELFPAY ==
[2022-11-15 16:04] VITALS: BP 130/88; PULSE 100; O2SAT 96; BMI 38.7
--- NOTE | 2022-11-15 16:04 | A.OFFPC_ITS ---
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 Accompanied by: Self / Same As Patient Allergies trazodone Adverse Reaction (Intermediate, Verified 11/15/22 16:04) congested zolpidem [From Ambien] Adverse Reaction (Intermediate, Verified 11/15/22 16:04) not effective Medication List - Last Reconciled 11/15/22 by Santosh Eddy MD albuterol sulfate 90 mcg/actuation (ProAir HFA) 2 puffs inhalation Q6H PRN cholecalciferol (vitamin D3) 50 mcg PO DAILY lisinopril 10 mg PO DAILY 90 days metformin 500 mg PO DAILY semaglutide 1 mg (0.75 mL) subcut QWEEK 30 days Tobacco use date assessed: 11/15/22 Dental Screening Dental Screen Date: 11/15/22 Did you have a dental visit in the last 12 months?: Yes Did you have a dental problem in the last 6 months where you did not have access to dental care?: No Was dental information given to patient?: Patient has dentist HPI 3m f/u HPI Details 37-year-old obese male with a history of impaired glucose tolerance, hypercholesterolemia asthma hypertension insomnia . Hospital discharge July 2022 for an elevated blood pressure. Medication adjustment done also new diabetes A1c of 6.9 patient was placed on hydrochlorothiazide but this was discontinued due to his work and concerns about dehydration had an ultrasound d one showing fatty liver with concerns about cirrhosis. Patient was seen by the nurse practitioner in August. Patient is surprised by the sudden weight gain, and noticed also some skin discoloration over the penile a no discharge. Had a long discussion with the patient about standards of treatment of diabetes medications, diet and exercise Alec inhibitors, cholesterol control eye exams which the patient has been compliant with. [facility] Medical History (Updated 11/15/22 @ 16:45 by Santosh Eddy MD) Adult general medical exam Anxiety Elevated LFTs Fatigue Impaired fasting glucose Polysubstance abuse Routine screening for STI (sexually transmitted infection) Screening for hyperlipidemia Screening for hypothyroidism Type 2 diabetes mellitus Surgical History S/P nasal surgery Family History Mother No problems noted. Father Heart attack Heart disease CAD (coronary artery disease) Paternal Grandmother Stroke Unknown Ascending aortic aneurysm Social History Housing: Apartment Alcohol intake: never Patient Tobacco Use Status: Never used Tobacco Tobacco use type: Cigarette Years Smoked: 2004 e-Cigarette/Vaping Use: Never Used Second Hand Smoke Exposure: No service: No Current occupational status: employed Current occupational exposures/hazards: No Cognitive needs: No Hearing needs: No Vision needs: Yes Questionnaire PHQ-9 Over the last 2 weeks, how often have you been bothered by any of the following problems? 1. Little interest or pleasure in doing things: not at all 2. Feeling down, depressed, or hopeless: not at all 3. Trouble falling or staying asleep, or sleeping too much: not at all 4. Feeling tired or having little energy: not at all 5. Poor appetite or overeating: not at all 6. Feeling bad about yourself - or that you are a failure or have let yourself or your family down: not at all 7. Trouble concentrating on things, such as reading the newspaper or watching television: not at all 8. Moving or speaking so slowly that other people could have noticed. Or the opposite - being so fidgety or restless that you have been moving around a lot more than usual: not at all 9. Thoughts that you would be better off or of hurting yourself in some way: not at all Total score: 0 Depression Screening Interpretation: Negative 27715 - PHQ-9 Billing: Yes Source: Developed by Drs. Dilshad Ziegler, Nay Figueroa, Diego Silva and colleagues, with an educational nate from [employer]. Thrive Questionnaire Date Thrive assessed: 11/15/22 I am a: Patient What is your living situation today?: I have a steady place to live Within the past 12 months, did the food you bought not last and you didn't have the money to get more?: Never true Within the past 12 months, did you worry whether your food would run out before you got money to buy more?: Never true Do you have trouble paying for medicines?: No Do you have trouble getting transportation to medical appointments?: No Do you have trouble paying your heating and electricity bill?: No Do you have trouble taking care of your child, family member or friend?: No Do you have trouble with day-to-day activities such as bathing, preparing meals, shopping, managing finances, etc.?: No Are you currently unemployed and looking for a job?: No Are you interested in more education?: No Please select the resources that you would like help with: None Currently or been in a relationship where the following occur: no concerns reported AUDIT C Alcohol Use Questionnaire (AUDIT-C) 1. How often do you have a drink containing alcohol?: Never Total Score: 0 Score Reviewed/Action Taken: No ROBERT-7 AMB Questionnaire ROBERT-7 Date ROBERT - 7 assessed: 11/15/22 Feeling nervous, anxious, or on edge: 0 = Not at all Not being able to stop or control worryin = Not at all Worrying too much about different things: 0 = Not at all Trouble relaxin = Not at all Being so restless that it is hard to sit still: 0 = Not at all Becoming easily annoyed or irritable: 0 = Not at all Feeling afraid as if something awful might happen: 0 = Not at all Total ROBERT-7 score (0-4 normal; 5-9 mild; 10-14 moderate; 15-21 severe): 0 Source: Developed by Drs. Dilshad Ziegler, Nay Figeuroa, Diego Silva and colleagues, with an educational nate from [employer]. Physical exam (Primary Care) Vital Signs: Last Vital Signs Pulse 100 11/15/22 16:04 BP 130/88 11/15/22 16:04 Pulse Ox 96 11/15/22 16:04 Oxygen Delivery Method Room Air 11/15/22 16:04 BMI result Body Mass Index 38.7 Tobacco/Smoking Status: Tobacco use Status Tobacco use date assessed 11/15/22 11/15/22 16:10 Patient Tobacco Use Status Never used Tobacco 11/15/22 16:10 Tobacco use type Cigarette 11/15/22 16:10 e-Cigarette/Vaping Use Never Used 11/15/22 16:10 PHQ-9: PHQ-9 Score PHQ-9: Total score 0 11/15/22 16:18 Depression Screening Interpretation: Negative Thrive Assessment: Date of Thrive Assessment Date Thrive assessed 11/15/22 11/15/22 16:10 Currently or been in a relationship where the following occur: no concerns reported Const General: alert; No acute distress Eyes Conjunctivae: conjunctivae normal Resp Auscultation: clear to auscultation bilaterally Cardio Rate: regular rate Rhythm: regular rhythm GI Inspection: Yes normal to inspection Extrem General: Yes normal to inspection and No edema Results AMB Hemoglobin A1c AMB Hemoglobin A1c 5.9 % Last Edit by Lashonda Wild on 11/15/22 16:30 Assessment and Plan Assessment & Plan (1) Type 2 diabetes mellitus with hyperglycemia: Comment: target Code(s): E11.65 - Type 2 diabetes mellitus with hyperglycemia Plan: Decrease the amount of carbohydrate intake, pasta, bread, rice and potatoes are all sugar and that is aside from all the sweet stuff, remember that fruits are good but they are Sweet also. Hemoglobin A1c goal of less than 6.5 continue with Ozempic (2) Fatty liver: Code(s): K76.0 - Fatty (change of) liver, not elsewhere classified Plan: Low-fat diet and exercise (3) Obesity (BMI 30-39.9): Code(s): E66.9 - Obesity, unspecified Plan: Diet and exercise (4) Hypercholesterolemia: Code(s): E78.00 - Pure hypercholesterolemia, unspecified Plan: Avoid fried foods, chicken skin, eggs, butter margarine, pastries and meat. Be it pork or beef they have a lot of cholesterol LDL goal of less than 100 and triglyceride of less than 150 (5) Generalized anxiety disorder: Code(s): F41.1 - Generalized anxiety disorder (6) Hypertension: Code(s): I10 - Essential (primary) hypertension Plan: Continue with blood pressure medication. Decrease salt intake and exercise patient is on lisinopril 10 mg once a day (7) Weight gain: Code(s): R63.5 - Abnormal weight gain Plan: Will do a referral to Endocrinology for further workup Orders: Orders Lipid Panel Today E78.00 - Pure hypercholesterolemia, unspecified Comprehensive Met. Panel Today E78.00 - Pure hypercholesterolemia, unspecified Microalbumin, Random (w Creat) Today E11.65 - Type 2 diabetes mellitus with hyperglycemia, E78.00 - Pure hypercholesterolemia, unspecified Creatinine Urine Today E11.65 - Type 2 diabetes mellitus with hyperglycemia, E78.00 - Pure hypercholesterolemia, unspecified Testosterone, Total Today N52.9 - Male erectile dysfunction, unspecified Cortisol Random Today E11.65 - Type 2 diabetes mellitus with hyperglycemia AMB Hemoglobin A1c Today E11.65 - Type 2 diabetes mellitus with hyperglycemia Referrals Endocrinology Referral E11.65 - Type 2 diabetes mellitus with hyperglycemia, R63.5 - Abnormal weight gain Medications: Changed From semaglutide (Ozempic) for 4 weeks 0.25 mg (0.4 mL) subcut QWEEK 3 mL 0RF E11.9 - Type 2 diabetes mellitus without complications To semaglutide for 4 weeks 1 mg (0.75 mL) subcut QWEEK 30 days 3.75 mL 1RF E11.9 - Type 2 diabetes mellitus without complications Refilled metformin 500 mg PO DAILY 180 tabs 0RF Discontinued hydrochlorothiazide Discontinued Reason: Doctor's Order 12.5 mg PO DAILY 90 tabs 0RF Coding Level of Care Code Est Pt Level 4 (02721) Diagnoses Type 2 diabetes mellitus with hyperglycemia E11. Fatty liver K76.0 Obesity (BMI 30-39.9) E66.9 Hypercholesterolemia E78.00 Generalized anxiety disorder F41.1 Hypertension I10 Weight gain R63.5
== END 2022-11-15 16:51 | disposition home or self-care (01) ==
PROVIDERS: PCP Internal Medicine; Visit Provider Internal Medicine
DX: E11.65 Type 2 diabetes mellitus with hyperglycemia (principal); I10 Essential (primary) hypertension; E66.9 Obesity, unspecified; Z68.38 Body mass index [BMI] 38.0-38.9, adult; E78.00 Pure hypercholesterolemia, unspecified; K76.0 Fatty (change of) liver, not elsewhere classified; F41.1 Generalized anxiety disorder; R63.5 Abnormal weight gain
CPT/HCPCS: 83036; 99214

== ENCOUNTER 2022-11-25 14:57 | Outpatient (REF) | payer OTHER, SELFPAY ==
[2022-11-25 16:48] LABS: Alanine Aminotransferase 42 U/L (0-40); Albumin Level 4.5 g/dL (3.5-5.0); Alkaline Phosphatase 118 U/L (39-117); Anion Gap 10 (12-20); Aspartate Amino Transferase 25 U/L (5-37); Bilirubin Total 0.4 mg/dL (0.0-1.0); Blood Urea Nitrogen 11 mg/dL (9-16); Calcium 9.6 mg/dL (8.4-10.2); Carbon Dioxide 27 mmol/L (22-29); Chloride 103 mmol/L (96-108); Cholesterol 197 mg/dL; Estimated Glomerular Filt Rate > 60; Glucose Random 96 mg/dL (60-115); HDL Cholesterol 35 mg/dL; LDL Cholesterol Calculated 139 mg/dl; Potassium 3.7 mmol/L (3.3-5.1); Sodium 136 mmol/L (135-145); Total Protein 7.7 g/dL (6.5-8.0); Triglycerides 118 mg/dL
[2022-11-25 18:15] LABS: Microalbum/Creatinine Ratio Ur 5.5 ug/mg cr
[2022-11-28 08:35] LABS: Syphilis Screen Nonreactive (Nonreactive)
[2022-11-28 09:03] LABS: HBS Num1 6.79 mIU/mL (0-7.99); HBc Num1 0.12 S/CO (0.00-0.79); HBsAGNum1 0.34 S/CO (0.00-0.99); HIV AB/AG Nonreactive (Nonreactive); HIV Num 1 0.04 S/CO (0.00-0.99); Hepatitis B Core Antibody Nonreactive (Nonreactive); Hepatitis B Surface Antigen Negative (Negative); ~Hepatitis B Surface Antibody NONREACTIVE (Nonreactive); ~Hepatitis C Antibody Nonreactive (Nonreactive)
[2022-11-30 22:18] LABS: Testosterone, Total 1396 ng/dL (250-1100)
== END 2022-11-25 14:58 | disposition home or self-care (01) ==
LOC: HO.LAB 14:57
PROVIDERS: PCP Internal Medicine; Visit Provider Internal Medicine
DX: Z11.4 Encounter for screening for human immunodeficiency virus [HIV] (principal); E78.00 Pure hypercholesterolemia, unspecified; N52.9 Male erectile dysfunction, unspecified; E11.65 Type 2 diabetes mellitus with hyperglycemia; R79.89 Other specified abnormal findings of blood chemistry; Z20.2 Contact with and (suspected) exposure to infections with a predominantly sexual mode of transmission
CPT/HCPCS: 36415; 80053; 80061; 82043; 82533; 84403; 86704; 86706; 86780; 86803; 87340; 87389

== ENCOUNTER 2023-02-27 16:45 | Outpatient (AMB) | payer OTHER, SELFPAY ==
[2023-02-27 16:46] VITALS: BP 132/90; PULSE 93; O2SAT 97; BMI 37.4
--- NOTE | 2023-02-27 16:46 | MHC.PC.OV ---
Vital Signs 02/27/23 16:46 02/27/23 17:05 Height 6 ft Weight 276 lb BMI 37.4 BP 132/90 H 120/80 Blood Pressure Location Lt brachial Lt brachial Position Sitting Sitting Pulse 93 Pulse Source Pulse Oximeter Pulse Oximetry (%) 97 Oxygen Delivery Method Room Air Intake Visit Reasons: 6 mon f/u Director Index Required: No Allergies trazodone Adverse Reaction (Intermediate, Verified 11/15/22 16:04) congested zolpidem [From Ambien] Adverse Reaction (Intermediate, Verified 11/15/22 16:04) not effective Medication List - Last Reconciled 02/27/23 by Santosh Eddy MD albuterol sulfate 90 mcg/actuation (ProAir HFA) 2 puffs inhalation Q6H PRN cholecalciferol (vitamin D3) 50 mcg PO DAILY lisinopril 10 mg PO DAILY 90 days metformin 500 mg PO DAILY semaglutide 1 mg (0.375 mL) subcut QWEEK 30 days Tobacco use date assessed: 11/15/22 HPI 6 mon f/u HPI Details 37-year-old obese male with diabetes mellitus fatty liver hypercholesterolemia hypertension and generalized anxiety disorder last seen in November 2022. Patient is here for follow-up. n oted weight loss on semaglutide . sore throat 1 month intermittent and wants strep test. decline additional [facility] Medical History (Updated 02/27/23 @ 17:13 by Santosh Eddy MD) Type 2 diabetes mellitus Elevated LFTs Impaired fasting glucose Adult general medical exam Routine screening for STI (sexually transmitted infection) Fatigue Screening for hypothyroidism Screening for hyperlipidemia Polysubstance abuse Anxiety Surgical History S/P nasal surgery Family History Mother No problems noted. Father Heart attack Heart disease CAD (coronary artery disease) Paternal Grandmother Stroke Unknown Ascending aortic aneurysm Social History Housing: Apartment Alcohol intake: never Patient Tobacco Use Status: Never used Tobacco Tobacco use type: Cigarette Years Smoked: 2004 e-Cigarette/Vaping Use: Never Used Second Hand Smoke Exposure: No service: No Current occupational status: employed Current occupational exposures/hazards: No Cognitive needs: No Hearing needs: No Vision needs: Yes Questionnaire Thrive Questionnaire Date Thrive assessed: 11/15/22 AUDIT C Alcohol Use Questionnaire (AUDIT-C) 1. How often do you have a drink containing alcohol?: Never Total Score: 0 Score Reviewed/Action Taken: No ROBERT-7 AMB Questionnaire ROBERT-7 Date ROBERT - 7 assessed: 11/15/22 Source: Developed by Drs. Dilshad Ziegler, Nay Figueroa, Diego Silva and colleagues, with an educational nate from [employer]. Physical exam (Primary Care) Vital Signs: Last Vital Signs Pulse 93 02/27/23 16:46 BP 120/80 02/27/23 17:05 Pulse Ox 97 02/27/23 16:46 Oxygen Delivery Method Room Air 02/27/23 16:46 BMI result Body Mass Index 37.4 Tobacco/Smoking Status: Tobacco use Status Tobacco use date assessed 11/15/22 02/27/23 16:53 Patient Tobacco Use Status Never used Tobacco 02/27/23 16:53 Tobacco use type Cigarette 02/27/23 16:53 e-Cigarette/Vaping Use Never Used 02/27/23 16:53 Thrive Assessment: Date of Thrive Assessment Date Thrive assessed 11/15/22 02/27/23 16:53 Const General: alert; No acute distress Eyes Conjunctivae: conjunctivae normal Resp Auscultation: clear to auscultation bilaterally Cardio Rate: regular rate Rhythm: regular rhythm GI Inspection: Yes normal to inspection Extrem General: Yes normal to inspection and No edema Results AMB Hemoglobin A1c AMB Hemoglobin A1c 7.0 % Last Edit by TANVIR Mensah on 02/27/23 16:59 AMB Rapid Strep AMB Rapid Strep Negative Last Edit by TANVIR Harley on 02/27/23 17:17 Results Reviewed Results Reviewed: Laboratory Last Values Hgb A1c (Clinic) 7.0 % (4.0-6.0) H 02/27/23 16:24 Strep Scn Rapid Clinic Negative 02/27/23 17:15 Assessment and Plan Assessment & Plan (1) Type 2 diabetes mellitus with hyperglycemia: Comment: target Code(s): E11.65 - Type 2 diabetes mellitus with hyperglycemia Plan: Decrease the amount of carbohydrate intake, pasta, bread, rice and potatoes are all sugar and that is aside from all the sweet stuff, remember that fruits are good but they are Sweet also. Hemoglobin A1c goal of less than 6.5. Patient is on metformin 500 mg once a day. noted AIC 7.0 decline ew med (2) Obesity (BMI 30-39.9): Code(s): E66.9 - Obesity, unspecified Plan: Diet and exercise (3) Hypercholesterolemia: Code(s): E78.00 - Pure hypercholesterolemia, unspecified Plan: Avoid fried foods, chicken skin, eggs,butter margarine, pastries and meat. Be it pork or beef they have a lot of cholesterol LDL goal of less than 100 and triglyceride of less than 150 November 2022 blood work showing 139 decline med (4) Fatty liver: Code(s): K76.0 - Fatty (change of) liver, not elsewhere classified (5) Generalized anxiety disorder: Code(s): F41.1 - Generalized anxiety disorder Plan: Low-fat diet (6) Hypertension: Code(s): I10 - Essential (primary) hypertension Plan: Continue with blood pressure medication. Decrease salt intake and exercise on lisinopril 10 mg once a day (7) Sexually transmitted disease exposure: Code(s): Z20.2 - Contact with and (suspected) exposure to infections with a predominantly sexual mode of transmission (8) Sore throat: Code(s): J02.9 - Acute pharyngitis, unspecified Orders: Orders AMB Hemoglobin A1c Today E11.65 - Type 2 diabetes mellitus with hyperglycemia Comprehensive Met. Panel Today E78.00 - Pure hypercholesterolemia, unspecified AMB Rapid Strep Screen Today J02.9 - Acute pharyngitis, unspecified, Z13.9 - Encounter for screening, unspecified CT NG by PCR Today Z20.2 - Contact with and (suspected) exposure to infections with a predominantly sexual mode of transmission Hemoglobin A1c Today E11.65 - Type 2 diabetes mellitus with hyperglycemia Lipid Panel Today E78.00 - Pure hypercholesterolemia, unspecified UA CC w/rflx Micro + Cult Today R30.0 - Dysuria, Z20.2 - Contact with and (suspected) exposure to infections with a predominantly sexual mode of transmission Medications: Changed From semaglutide for 4 weeks 1 mg (0.75 mL) subcut QWEEK 30 days 3.75 mL 1RF E11.9 - Type 2 diabetes mellitus without complications To semaglutide for 4 weeks 1 mg (0.375 mL) subcut QWEEK 30 days 1.875 mL 3RF E11.9 - Type 2 diabetes mellitus without complications Coding Level of Care Code Est Pt Level 4 (15335) Diagnoses Type 2 diabetes mellitus with hyperglycemia E11.65 Obesity (BMI 30-39.9) E66.9 Hypercholesterolemia E78.00 Fatty liver K76.0 Generalized anxiety disorder F41.1 Hypertension I10 Sexually transmitted disease exposure Z20.2 Sore throat J02.9
[2023-02-27 17:05] VITALS: BP 120/80
== END 2023-02-27 17:19 | disposition home or self-care (01) ==
PROVIDERS: PCP Internal Medicine; Visit Provider Internal Medicine
DX: E11.65 Type 2 diabetes mellitus with hyperglycemia (principal); E78.00 Pure hypercholesterolemia, unspecified; J02.9 Acute pharyngitis, unspecified; K76.0 Fatty (change of) liver, not elsewhere classified; F41.1 Generalized anxiety disorder; I10 Essential (primary) hypertension; Z20.2 Contact with and (suspected) exposure to infections with a predominantly sexual mode of transmission
CPT/HCPCS: 83036; 87880; 99214

== ENCOUNTER 2023-03-03 16:13 | Outpatient (REF) | payer OTHER, SELFPAY ==
[2023-03-03 17:05] LABS: Appearance Urine Clear; Color Urine Yellow; Glucose Urine UA Negative (Negative); Leukocyte Esterase Urine Negative (Negative); Nitrite Urine Negative (Negative); PH 5.5 (5.0-9.0); Specific Gravity - Urine 1.025 (1.005-1.025); Urine Blood Negative (Negative); Urine Ketones Negative (Negative); Urine Protein Negative (Neg-Trace)
[2023-03-03 17:32] LABS: Creatinine Urine 237.25 mg/dL
== END 2023-03-03 16:14 | disposition home or self-care (01) ==
LOC: HO.LAB 16:13
PROVIDERS: PCP Internal Medicine; Visit Provider Internal Medicine
DX: R30.0 Dysuria (principal); E11.65 Type 2 diabetes mellitus with hyperglycemia; E78.00 Pure hypercholesterolemia, unspecified; Z20.2 Contact with and (suspected) exposure to infections with a predominantly sexual mode of transmission
CPT/HCPCS: 81003; 82570

== ENCOUNTER 2023-09-22 13:12 | Outpatient (AMB) | payer OTHER, SELFPAY ==
--- NOTE | 2023-09-22 13:12 | A.OFFPC_ITS ---
Vital Signs 09/22/23 13:13 Height 6 ft BP 120/80 Blood Pressure Location Lt brachial Position Sitting Intake Visit Reasons: F/U & BP Meds [employer] Decor[employer] Required: No Allergies trazodone Adverse Reaction (Intermediate, Verified 09/22/23 13:12) congested zolpidem [From Ambien] Adverse Reaction (Intermediate, Verified 09/22/23 13:12) not effective Medication List - Last Reconciled 09/22/23 by Santosh Eddy MD albuterol sulfate 90 mcg/actuation (ProAir HFA) 2 puffs inhalation Q6H PRN cholecalciferol (vitamin D3) 50 mcg PO DAILY lisinopril 10 mg PO DAILY 90 days metformin 500 mg PO DAILY valacyclovir 500 mg PO BID 3 days Tobacco use date assessed: 11/15/22 Dental Screening Dental Screen Date: 09/22/23 HPI F/U & BP Meds HPI Details 38-year-old male with diabetes mellitus uncontrolled with last hemoglobin A1c of 7 hypercholesterolemia hypertension generalized anxiety disorder following up through Telehealth. Concern that the last blood work for cholesterol was done in November and elevated. Discussed with the patient that he will need to be seen in the office to get it all tested. [facility] Medical History (Updated 02/27/23 @ 17:13 by Santosh Eddy MD) Type 2 diabetes mellitus Elevated LFTs Impaired fasting glucose Adult general medical exam Routine screening for STI (sexually transmitted infection) Fatigue Screening for hypothyroidism Screening for hyperlipidemia Polysubstance abuse Anxiety Surgical History S/P nasal surgery Family History Mother No problems noted. Father Heart attack Heart disease CAD (coronary artery disease) Paternal Grandmother Stroke Unknown Ascending aortic aneurysm Social History Housing: Apartment Alcohol intake: never Patient Tobacco Use Status: Never used Tobacco Tobacco use type: Cigarette Years Smoked: 2004 e-Cigarette/Vaping Use: Never Used Second Hand Smoke Exposure: No service: No Current occupational status: employed Current occupational exposures/hazards: No Cognitive needs: No Hearing needs: No Vision needs: Yes Questionnaire Thrive Questionnaire Date Thrive assessed: 11/15/22 AUDIT C Alcohol Use Questionnaire (AUDIT-C) 1. How often do you have a drink containing alcohol?: Never 3. How often do you have six or more drinks on one occasion?: Never Total Score: 0 Score Reviewed/Action Taken: No ROBERT-7 AMB Questionnaire ROBERT-7 Date ROBERT - 7 assessed: 09/22/23 Feeling nervous, anxious, or on edge: 0 = Not at all Not being able to stop or control worryin = Not at all Worrying too much about different things: 0 = Not at all Trouble relaxin = Not at all Being so restless that it is hard to sit still: 0 = Not at all Becoming easily annoyed or irritable: 0 = Not at all Feeling afraid as if something awful might happen: 0 = Not at all Total ROBERT-7 score (0-4 normal; 5-9 mild; 10-14 moderate; 15-21 severe): 0 Source: Developed by Drs. Dilshad Ziegler, Nay Figueroa, Diego Silva and colleagues, with an educational nate from [employer]. ROBERT-7 Assessment Billing ROBERT-7 Assessment Tool: ROBERT-7 Assessment [id number] Physical exam (Primary Care) Vital Signs: Last Vital Signs BP 120/80 09/22/23 13:13 Tobacco/Smoking Status: Tobacco use Status Tobacco use date assessed 11/15/22 09/22/23 13:16 Patient Tobacco Use Status Never used Tobacco 09/22/23 13:16 Tobacco use type Cigarette 09/22/23 13:16 e-Cigarette/Vaping Use Never Used 09/22/23 13:16 Thrive Assessment: Date of Thrive Assessment Date Thrive assessed 11/15/22 09/22/23 13:16 Telehealth Telehealth Telehealth Platform: Telephone Location of provider rendering services: practice address Location of patient: address on file Patient Identification confirmed using: Name, : Yes Telehealth method: video (IPHONE ) Patient verbally consented to treatment: Yes Patient verbally consented to billing insurance company: Yes Patient informed of any privacy concerns related to visit: Yes Assessment and Plan Assessment & Plan (1) Type 2 diabetes mellitus with hyperglycemia: Comment: target Code(s): E11.65 - Type 2 diabetes mellitus with hyperglycemia Plan: Decrease the amount of carbohydrate intake, pasta, bread, rice and potatoes are all sugar and that is aside from all the sweet stuff, remember that fruits are good but they are Sweet also. Hemoglobin A1c goal of less than 6.5. Patient needs to have blood work done. Patient has been placed on semaglutide and metformin (2) Hypercholesterolemia: Code(s): E78.00 - Pure hypercholesterolemia, unspecified Plan: Avoid fried foods, chicken skin, eggs, butter margarine, pastries and meat. Be it pork or beef they have a lot of cholesterol presently on no medication needs to have blood work done (3) Hypertension: Code(s): I10 - Essential (primary) hypertension Plan: Blood pressure plan on lisinopril 10 mg once a day patient is advised to get blood work done. Orders: Orders Complete Blood Count Auto Diff Today E11.65 - Type 2 diabetes mellitus with hyperglycemia Comprehensive Met. Panel Today E11.65 - Type 2 diabetes mellitus with hyperglycemia Free T4 (Free Thyroxine) Today E11.65 - Type 2 diabetes mellitus with hyperglycemia Vitamin B12 and Folate Today E11.65 - Type 2 diabetes mellitus with hyperglycemia Thyroid Stimulating Hormone Today E11.65 - Type 2 diabetes mellitus with hyperglycemia Lipid Panel Today E11.65 - Type 2 diabetes mellitus with hyperglycemia, E78.00 - Pure hypercholesterolemia, unspecified Microalbumin, Random (w Creat) Today E11.65 - Type 2 diabetes mellitus with hyperglycemia Creatinine Urine Today E11.65 - Type 2 diabetes mellitus with hyperglycemia Hemoglobin A1c Today E11.65 - Type 2 diabetes mellitus with hyperglycemia Medications: Refilled lisinopril 10 mg PO DAILY 90 days 90 tabs 3RF I10 - Essential (primary) hypertension Discontinued semaglutide for 4 weeks Discontinued Reason: Insurance Denied 2 mg (0.75 mL) subcut QWEEK 30 days 3.75 mL 3RF E11.9 - Type 2 diabetes mellitus without complications Coding Level of Care Code Tele Est Pt Level 4 (98509) Diagnoses Type 2 diabetes mellitus with hyperglycemia E11.65 Hypercholesterolemia E78.00 Hypertension I10 Additional Codes ROBERT-7 Assessment Billing - ROBERT-7 Assessment Tool: ROBERT-7 Assessment [id number] ([id number])
[2023-09-22 13:13] VITALS: BP 120/80
== END 2023-09-22 14:36 | disposition home or self-care (01) ==
LOC: HO.HMGH 13:12
PROVIDERS: PCP Internal Medicine; Visit Provider Internal Medicine
DX: E11.65 Type 2 diabetes mellitus with hyperglycemia (principal); E78.00 Pure hypercholesterolemia, unspecified; I10 Essential (primary) hypertension
CPT/HCPCS: 99214

== ENCOUNTER 2024-08-13 14:54 | Outpatient (AMB) | payer BC, SELFPAY ==
--- NOTE | 2024-08-13 14:54 | A.OFFPC_ITS ---
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 Legal Investigator: Not Required per policy Accompanied by: Self / Same As Patient Allergies trazodone Adverse Reaction (Intermediate, Verified 08/13/24 14:55) congested zolpidem [From Ambien] Adverse Reaction (Intermediate, Verified 08/13/24 14:55) not effective HCTZ Adverse Reaction (Intermediate, Uncoded 08/13/24 17:54) dehydration Medication List - Last Reconciled 08/13/24 by Santosh Eddy MD albuterol sulfate 90 mcg/actuation (ProAir HFA) 2 puffs inhalation Q6H PRN lisinopril 10 mg PO DAILY 90 days valacyclovir 500 mg PO BID 3 days Tobacco use date assessed: 11/15/22 Dental Screening Dental Screen Date: 08/13/24 Did you have a dental visit in the last 12 months?: No Did you have a dental problem in the last 6 months where you did not have access to dental care?: No Was dental information given to patient?: No HPI Med Review HPI Details moved to [place]. [facility] Medical History (Updated 02/27/23 @ 17:13 by Santosh Eddy MD) Type 2 diabetes mellitus Elevated LFTs Impaired fasting glucose Adult general medical exam Routine screening for STI (sexually transmitted infection) Fatigue Screening for hypothyroidism Screening for hyperlipidemia Polysubstance abuse Anxiety Surgical History S/P nasal surgery Family History Mother No problems noted. Father Heart attack Heart disease CAD (coronary artery disease) Paternal Grandmother Stroke Unknown Ascending aortic aneurysm Social History Housing: Apartment Alcohol intake: never Patient Tobacco Use Status: Never used Tobacco Tobacco use type: Cigarette Years Smoked: 2004 e-Cigarette/Vaping Use: Never Used Second Hand Smoke Exposure: No service: No Current occupational status: employed Current occupational exposures/hazards: No Cognitive needs: No Hearing needs: No Vision needs: Yes Questionnaire PHQ-9 Over the last 2 weeks, how often have you been bothered by any of the following problems? 1. Little interest or pleasure in doing things: not at all 2. Feeling down, depressed, or hopeless: not at all 3. Trouble falling or staying asleep, or sleeping too much: not at all 4. Feeling tired or having little energy: not at all 5. Poor appetite or overeating: not at all 6. Feeling bad about yourself - or that you are a failure or have let yourself or your family down: not at all 7. Trouble concentrating on things, such as reading the newspaper or watching television: not at all 8. Moving or speaking so slowly that other people could have noticed. Or the opposite - being so fidgety or restless that you have been moving around a lot more than usual: not at all 9. Thoughts that you would be better off or of hurting yourself in some way: not at all Total score: 0 Depression Screening Interpretation: Negative Depression Screening Done: Yes Source: Developed by Drs. Dilshad Ziegler, Nay Figueroa, Diego Silva and colleagues, with an educational nate from [employer]. Thrive Questionnaire Date Thrive assessed: 08/13/24 I am a: Patient What is your living situation today?: I have a steady place to live Within the past 12 months, did the food you bought not last and you didn't have the money to get more?: Never true Within the past 12 months, did you worry whether your food would run out before you got money to buy more?: Never true Do you have trouble paying for medicines?: No Do you have trouble getting transportation to medical appointments?: No Do you have trouble paying your heating and electricity bill?: No Do you have trouble taking care of your child, family member or friend?: No Do you have trouble with day-to-day activities such as bathing, preparing meals, shopping, managing finances, etc.?: No Are you currently unemployed and looking for a job?: No Are you interested in more education?: No Please select the resources that you would like help with: None Currently or been in a relationship where the following occur: No concerns reported THRIVE Score: 0 AUDIT C Alcohol Use Questionnaire (AUDIT-C) 1. How often do you have a drink containing alcohol?: Never Total Score: 0 ROBERT-7 AMB Questionnaire ROBERT-7 Date ROBERT - 7 assessed: 08/13/24 Feeling nervous, anxious, or on edge: 0 = Not at all Not being able to stop or control worryin = Not at all Worrying too much about different things: 0 = Not at all Trouble relaxin = Not at all Being so restless that it is hard to sit still: 0 = Not at all Becoming easily annoyed or irritable: 0 = Not at all Feeling afraid as if something awful might happen: 0 = Not at all Total ROBERT-7 score (0-4 normal; 5-9 mild; 10-14 moderate; 15-21 severe): 0 Source: Developed by Drs. Dilshad Ziegler, Nay Figueroa, Diego Silva and colleagues, with an educational nate from [employer]. Physical exam (Primary Care) Tobacco/Smoking Status: Tobacco use Status Tobacco use date assessed 11/15/22 08/13/24 14:58 Patient Tobacco Use Status Never used Tobacco 08/13/24 14:58 Tobacco use type Cigarette 08/13/24 14:58 e-Cigarette/Vaping Use Never Used 08/13/24 14:58 PHQ-9: PHQ-9 Score PHQ-9: Total score 0 08/13/24 17:47 Depression Screening Interpretation: Negative Thrive Assessment: Date of Thrive Assessment Date Thrive assessed 08/13/24 08/13/24 14:58 Currently or been in a relationship where the following occur: No concerns reported Telehealth Telehealth Telehealth Platform: [employer] Location of provider rendering services: practice address Location of patient: address on file Patient Identification confirmed using: Name, : Yes Telehealth method: video Patient verbally consented to treatment: Yes Patient verbally consented to billing insurance company: Yes Patient informed of any privacy concerns related to visit: Yes Minutes spent on Phone/Video with Pt.: 25 Coding Level of Care Code Tele Est Pt Level 4 (12497) Diagnoses Type 2 diabetes mellitus with hyperglycemia E11.65 Hypercholesterolemia E78.00 Hypertension I10 Asthma J45.909 Fatty liver K76.0 Assessment & Plan Assessment & Plan (1) Type 2 diabetes mellitus with hyperglycemia: Comment: target Code(s): E11.65 - Type 2 diabetes mellitus with hyperglycemia Category: Medical Plan: Decrease the amount of carbohydrate intake, pasta, bread, rice and potatoes are all sugar and that is aside from all the sweet stuff, remember that fruits are good but they are Sweet also. Patient needs blood work reminded about Ophthalmology evaluation (2) Hypercholesterolemia: Code(s): E78.00 - Pure hypercholesterolemia, unspecified Category: Medical Plan: Avoid fried foods, chicken skin, eggs, butter margarine, pastries and meat. Be it pork or beef they have a lot of cholesterol patient needs blood work LDL goal of less than 100 and triglyceride of less than 150 (3) Hypertension: Code(s): I10 - Essential (primary) hypertension Category: Medical Plan: Continue with blood pressure medication. Decrease salt intake and exercise patient needs to be examined for the blood pressure (4) Asthma: Code(s): J45.909 - Unspecified asthma, uncomplicated Category: Medical (5) Fatty liver: Code(s): K76.0 - Fatty (change of) liver, not elsewhere classified Category: Medical Plan: Low-fat diet and exercise Plan History of Present Illness The patient is a 39-year-old male presenting with a follow-up visit for Type 2 Diabetes Mellitus and Essential Hypertension management. His chronic conditions include asthma, hypercholesterolemia, generalized anxiety disorder, and hepatic steatosis. The patient acknowledged having been non-compliant with scheduled lab work since 2022, when his hemoglobin A1c was 7 and LDL cholesterol was 139 m g/dL, showing poor control over diabetes and cholesterol. He reported high blood pressure readings, as high as 170/90 mmHg, and noted self-adjusting Lisinopril dosage from 10 mg to 20 mg. He experiences infrequent asthma attacks, using an inhaler sporadically. Dietary changes include a shift toward vegetarian meals, potentially high in sodium. An episode of tachycardia was reported, which led to an emergency department visit, although subsequent measurements were normal. Plans include establishing care with a local provider upon insurance authorization following job relocation. Review of Systems - Cardiovascular: Reports elevated blood pressure readings; no recent chest pain reported. - Respiratory: Reports asthma management with sporadic inhaler use; denies recent exacerbations. - Endocrine: Reports compliance with diabetes plan but noted prior high hemoglobin A1c. - Neurologic: Reports episode of tachycardia; denies recent dizziness or syncope. - Psychiatric: Reports history of generalized anxiety disorder; no recent exacerbations reported. - Gastrointestinal: Denies abdominal pain or recent changes in bowel habits. Plan The patient requires updated laboratory tests for comprehensive blood work to evaluate glycemic control and hepatic function. For hyperlipidemia, the target is to lower LDL cholesterol below 100 mg/dL, and triglyceride levels under 150 mg/dL through dietary management. Essential Hypertension treatment involves increasing Lisinopril to 40 mg/day. Options such as adding amlodipine may be considered pending future blood pressure assessments. A diuretic was excluded due to prior dehydration issues. Frequent blood pressure monitoring and dietary modifications are advised, especially reducing sodium intake from pre-packaged foods. Follow-up with a local physician once insurance is active will be crucial for ongoing management. Patient was informed and verbally consented to the use of an ambient scribe for clinic note documentation during this visit. Discussion Notes Discussions with the patient included increasing Lisinopril dosage to 40 mg/day for improved blood pressure control, with future consideration for additional antihypertensive agents if necessary. The patient was informed of the significance of comprehensive blood work to assess control over diabetes and dyslipidemia. Risks of continued high blood pressure were communicated, and the importance of monitoring and lifestyle changes was emphasized. Consultation with a local healthcare provider was recommended pending activation of new job- related insurance. The potential for pre-packaged vegetarian meals in contributing to sodium intake was discussed, with a recommendation to consider alternative dietary options. Patient Instructions - Obtain blood work as soon as possible to evaluate current control of diabetes and cholesterol. - Monitor blood pressure regularly and report elevated readings. - Maintain current Lisinopril regimen, increase as directed. - Avoid sodium-rich pre-packaged foods; opt for low-sodium dietary options. - Seek a local physician for follow-up care once insurance is active. - Maintain adequate hydration and exercise as tolerated. - Return for further assessment if experiencing elevated blood pressure or other concerning symptoms. Orders: Orders Complete Blood Count Auto Diff Today E11.65 - Type 2 diabetes mellitus with hyperglycemia Comprehensive Met. Panel Today E11.65 - Type 2 diabetes mellitus with hyperglycemia Thyroid Stimulating Hormone Today E11.65 - Type 2 diabetes mellitus with hyperglycemia Lipid Panel Today E11.65 - Type 2 diabetes mellitus with hyperglycemia, E78.00 - Pure hypercholesterolemia, unspecified Vitamin B12 and Folate Today E11.65 - Type 2 diabetes mellitus with hyperglycemia Creatinine Urine Today E11.65 - Type 2 diabetes mellitus with hyperglycemia Free T4 (Free Thyroxine) Today E11.65 - Type 2 diabetes mellitus with hyperglycemia Microalbumin, Random (w Creat) Today E11.65 - Type 2 diabetes mellitus with hyperglycemia Hemoglobin A1c Today E11.65 - Type 2 diabetes mellitus with hyperglycemia Medications: Changed From lisinopril 10 mg PO DAILY 90 days 90 tabs 3RF I10 - Essential (primary) hypertension To lisinopril 40 mg PO DAILY 90 tabs 3RF 90 days I10 - Essential (primary) hypertension
--- OUTSIDE RECORDS SUMMARY | 2024-08-13 18:02 | XMS_ITS | Clinical Summary ---
Author Organization [facility] Address [address] [place] [phone] Phone Care Team Providers Care Rn Family Practice Name Role Phone Unavailable Primary Care Provider Unavailabl e Immunizations Immunization Administration Dates Next Due DTP 09/09/1991, 8,03/10/1987,12/10,1986 Hep B, ped/adol 07/15/1998,04/15/1998,03/11/1998 Hib (HbOC) 09/20/1988 MMR 09/03/1998,11/23/1987 Meningococcal Conj (Menactra) MCV4P 06/14/2007 OPV 09/09/1991, 8,03/10/1987,12/10,1986 Td (adult) (Tenivac), 5 Lf t etanus toxoid, PF, adsorbed 09/03/1998 Tdap 06/14/2007 Social History Tobacco Use Types Packs/Day Years Used Date Smoking Tobacco: Never Assessed Sex and Gender Information Value Date Recorded Sex Assigned at Not on file Legal Sex Male 4:22 PM EDT Gender Identity Not on file Sexual Orientation Not on file Plan of Treatment Health Maintenance Due Date Last Done Comments Varicella Vaccines (1 of 2 - 13+ 2-dose series) 07/18/1999 DTaP,Tdap,and Td Vaccines (7 - Td or Tdap) 06/14/2017 06/14/2007, 09/03/1998, 09/09/1991, Additional history exists Influenza Vaccines (#1) 2023 COVID-19 Vaccine ( - season) 2024 HIB Vaccines Completed 09/20/1988 IPV Vaccines Completed 09/09/1991, 01/07, 03/10/1987, Additional history exists Hepatitis B Vaccines Completed 07/15/1998, 04/15/1998, 03/11/1998 MMR Vaccines Completed 09/03/1998, 11/23/1987 Meningococcal Vaccine Aged Out 06/14/2007 No august geo eligible based on patient's age to complete this topic HPV Vaccines Aged Out No longer eligi ble based on patient's age to complete this topic Hepatitis A Vaccines Aged Out No long er eligible based on patient's age to complete this topic Men B Vaccine Aged Out No longer elig ible based on patient's age to complete this topic Pneumococcal Vaccine Aged Out No long er eligible based on patient's age to complete this topic
--- OUTSIDE RECORDS SUMMARY | 2024-08-13 18:02 | XMS_ITS | Encounter Summary ---
Author Organization [facility] Address [address] [place] [address] Phone Care Team Providers Care Bakery Products Checker Name Role Phone Karen Stock MD Primary Care Provider [phone] Encounter Details Date Type Department Care Team (Late st Contact Info) Description 12/22/2016 Conversion Encounter [facility] [place] [address] [place] [address] Social History Tobacco Use Types Packs/Day Years Used Date Smoking Tobacco: Never Assessed Sex and Gender Information Value Date Recorded Sex Assigned at Not on file Legal Sex Male 4:22 PM EDT Gender Identity Not on file Sexual Orientation Not on file documented as of this encounter Plan of Treatment Not on file documented as of this encounter Visit Diagnoses Not on filedocumented in this encounter Care Teams Bakery Products Checker Relationship Specialty Start Date End Date Karen Stock MD [address] [place] [address] PCP - General 12/16/16 10/12/22 documented as of this encounter
--- OUTSIDE RECORDS SUMMARY | 2024-08-13 18:02 | XMS_ITS ---
Author Name [facility] Organization Unknown Care Team Organization Name Specialty Phone Email Start Date End Da te [employer] Insurance 07/24/2021 0 12/25/2023
== END 2024-08-13 17:55 | disposition home or self-care (01) ==
LOC: HO.HMCH 14:54
PROVIDERS: PCP Internal Medicine; Visit Provider Internal Medicine
DX: E11.65 Type 2 diabetes mellitus with hyperglycemia (principal); E78.00 Pure hypercholesterolemia, unspecified; I10 Essential (primary) hypertension; J45.909 Unspecified asthma, uncomplicated; K76.0 Fatty (change of) liver, not elsewhere classified

== ENCOUNTER → 2024-08-13 14:54 | Outpatient (BNVA) | payer BC, SELFPAY | PROVIDERS: PCP Internal Medicine; Visit Provider Internal Medicine | DX: Z13.89 Encounter for screening for other disorder (principal) ==